=== PATIENT | male | born 1950 | race Caucasian/White ===

== ENCOUNTER 2019-05-26 17:37 | Emergency (ER) | payer MEDICARE, OTHER ==
[~2019-05-26] VITALS: Ht 170.1 cm; Wt 90.9 kg
--- NOTE | 2019-05-26 18:12 | ED General ---
General Chief Complaint: Dizziness/Syncope Stated Complaint: DIZZINESS Nursing Triage Note: Patient presents to the ED with c/o dizziness. States he was getting ready to go watch his grand[employer] program when he stood up and became very dizzy. Reports that the onset was 4 to 5 hours prior to arrival at the ED. He also states his blood pressure was elevated at this time and reports a reading of 140/90. Nursing Sepsis Screen: No Definite Risk Source of Information: Patient, Spouse Exam Limitations: No Limitations History of Present Illness Date Seen by Provider: May 26, 2019 Time Seen by Provider: 17:45 Initial Comments Patient presents to ER by private conveyance with chief complaint of dizziness starting a couple hours ago. He stood up from a seated position and started to feel the room spinning around him but there is no motion. He's had this happen a few times in the past. He has had a problem with ear effusions sinus pressure and sinusitis. He says it's been especially bad lately. He denies any fevers or chills. He has a history of high blood pressure and prostatism and is on tamsulosin, lisinopril and finasteride. He has never seen anybody for it. His family history includes his dad having a stroke at age 70. He does not have diabetes, hypercholesterolemia, history of coronary disease stroke or other neurologic symptoms. Having no weakness slurring speech confusion or other concerning features. He used to smoke cigars over 20 years ago. He does not use recreational drugs but he does drink occasional glass of red wine. Allergies and Home Medications Allergies Coded Allergies: meperidine (Verified Allergy, Unknown, 05/26/19) Home Medications Meclizine HCl 25 Mg Tablet, 25 MG PO Q6H PRN for DIZZINESS Prescribed by: JONATHON HARP on 05/26/191812 Prednisone 20 Mg Tab, 40 MG PO DAILY Prescribed by: JONATHON HARP on 05/26/191812 Patient Home Medication List Home Medication List Reviewed: Yes Review of Systems Review of Systems Constitutional: No chills, No fever, No malaise EENTM: see HPI, hearing loss, nose congestion; No ear discharge, No ear pain, No blurred vision, No double vision, No mouth swelling, No nose pain, No throat pain Respiratory: No cough, No short of breath Cardiovascular: No chest pain, No edema Gastrointestinal: No abdominal pain, No constipation, No diarrhea Genitourinary: No discharge, No dysuria Musculoskeletal: No back pain Skin: No pruritus, No rash Psychiatric/Neurological: Denies Headache, Denies Numbness Past Epyeyga-Cehxtc-Xqwryu Hx Patient Social History Alcohol Use: Occasionally Uses Recreational Drug Use: No Smoking Status: Former Smoker Type Used: Cigars 2nd Hand Smoke Exposure: No Recent Foreign Travel: No Contact w/Someone Who Travel: No Recent Infectious Disease Expo: No Recent Hopitalizations: No Physical Abuse: No Sexual Abuse: No Mistreated: No Fear: No Seasonal Allergies Seasonal Allergies: Yes Past Medical History Surgeries: Yes (Colonoscopy) Respiratory: No Cardiac: Yes Hypertension Neurological: No Genitourinary: Yes Benign Prostatic Hyperpl Gastrointestinal: No Musculoskeletal: No Endocrine: No HEENT: Yes (Chronic Sinusitis) Cancer: No Psychosocial: No Integumentary: No Blood Disorders: No Physical Exam Vital Signs Vital Signs - First Documented 05/26/19 17:44 Temp 35.8 Pulse 53 Resp 15 B/P (MAP) 140/70 (93) Pulse Ox 95 O2 Delivery Room Air Capillary Refill : Less Than 3 Seconds Height, Weight, BMI Height: '" Weight: lbs. oz. kg; 31.00 BMI Method: General Appearance: No Apparent Distress, WD/WN, Anxious Eyes: Bilateral Eye Normal Inspection, Bilateral Eye PERRL, Bilateral Eye EOMI HEENT: PERRL/EOMI, Pharynx Normal, Moist Mucous Membranes, Other (mild nasal congestion. Bilateral TMs with clear mucoid effusion and bulging but without erythema or injection) Neck: Full Range of Motion, Normal Inspection, Non Tender, Supple Respiratory: Lungs Clear, Normal Breath Sounds, No Accessory Muscle Use, No Respiratory Distress Cardiovascular: Regular Rate, Rhythm, No Edema, Normal Peripheral Pulses, Other (heart rate in the 40s which she states is his baseline) Extremity: Normal Capillary Refill, Normal Inspection Neurologic/Psychiatric: Alert, Oriented x3, No Motor/Sensory Deficits, leather cleaner II- XII Norm as Tested, Other (test of skew demonstrates horizontal but no vertical pupil movement. Negative for nystagmus. Normal head impulse testing. No pronator drift.) Skin: Normal Color, Warm/Dry Progress/Results/Core Measures Suspected Sepsis Recent Fever Within 48 Hours: No Infection Criteria Present: None New/Unexplained Altered Menta: No Sepsis Screen: No Definite Risk SIRS Temperature: Pulse: 53 Respiratory Rate: 15 Blood Pressure 140 /70 Mean: 93 Results/Orders My Orders Orders - JONATHON HARP Ekg Tracing (05/26/19 17:43) Vital Signs/I&O 05/26/19 17:44 Temp 35.8 Pulse 53 Resp 15 B/P (MAP) 140/70 (93) Pulse Ox 95 O2 Delivery Room Air Capillary Refill : Less Than 3 Seconds Blood Pressure Mean: 93 Progress Note : Time: 18:17 Progress Note NIH is 0. He has vertigo which was not reproducible on Melita-Hallpike testing does appear to be linked to his bilateral mucoid effusion and likely labyrinthitis. He did have a brief episode of vertigo after sitting him back up from his Melita- Hallpike maneuver. Plan to put him out on steroids with meclizine. Follow-up with primary care. Gave good return precautions for any neurologic symptoms. Departure Impression Primary Impression: Vertigo Additional Impression: Labyrinthitis of both ears Disposition: 01 HOME, SELF-CARE Condition: Stable Departure-Patient Inst. Decision time for Depature: 18:10 Referrals: CHRISTIANA ARCHIBALD MD (PCP/Family) Primary Care Physician Patient Instructions: Vertigo (a Type of Dizziness) (DC), Labyrinthitis Add. Discharge Instructions: If you begin to have any neurologic symptoms such as weakness, numbness, tingling, facial droop, slurred speech, confusion, inability to recognize faces or other worrisome symptoms then please return to the nearest ER immediately. 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 If you're not seeing improvement in the first 5-7 days then start the prednisone 2 tablets daily for 5 days. If this does not improve your symptoms follow-up with primary care. If you have persistent vertigo then you may try meclizine 1 tablet every 6 hours as needed. All discharge instructions reviewed with patient and/or family. Voiced understanding. Scripts Prednisone (Prednisone) 20 Mg Tab 40 MG PO DAILY for 5 Days, #10 TAB 0 Refills Prov: JONATHON HARP 05/26/19 Meclizine HCl (Meclizine HCl) 25 Mg Tablet 25 MG PO Q6H PRN for DIZZINESS, #20 TAB 0 Refills Prov: JONATHON HARP 05/26/19 JNOATHON HARP May 26, 2019 18:12
[2019-05-26] MEDS ORDERED: PRD20T PO (18:13)
[2019-05-26] MEDS ORDERED: MECL-106 PO (18:13)
[2019-05-26 18:23] VITALS: BP 140/70
== END 2019-05-26 18:22 | disposition home or self-care (01) ==
LOC: EDUNIT# 17:37 → ER FS 17:40
DX: H83.03 Labyrinthitis, bilateral (principal); I10 Essential (primary) hypertension; Z88.5 Allergy status to narcotic agent; Z87.891 Personal history of nicotine dependence
CPT/HCPCS: 99283

== ENCOUNTER 2019-12-07 22:13 | Emergency (ER) | payer MEDICARE, OTHER ==
[~2019-12-07 22:13] MED LIST: MECL-149 PO; PRD20T PO
--- OUTSIDE RECORDS SUMMARY | 2019-12-07 22:18 | XMS REPORT | Continuity of Care Document ---
Author Organization Unknown Address Unknown Phone Unavailable Allergies Active Description Code Type Severity Reaction Onset Reported/Identified Relationship to Patient Clinical Status Yes meperidine [id number] Drug Allerg y Unknown N/A 05/26/2019 Medications There is no data. Problems Date Dx Coded Attending Type Code Diagnosis Diagnosed By 05/26/2019 JONATHON HARP MD Ot H83. 03 LABYRINTHITIS, BILATERAL 05/26/2019 JONATHON HARP MD Ot I10 ESSENTIAL (PRIMARY) HYPERTENSION 05/26/2019 JONATHON HARP MD Ot R42 DIZZINESS AND GIDDINESS 05/26/2019 JONATHON HARP MD Ot Z87.891 PERSONAL HISTORY OF NICOTINE DEPENDENCE 05/26/2019 JONATHON HARP MD Ot Z88. 5 ALLERGY STATUS TO NARCOTIC AGENT STATUS 06/01/2019 JONATHON HARP MD Ot H83. 03 LABYRINTHITIS, BILATERAL 06/01/2019 JONATHON HARP MD Ot I10 ESSENTIAL (PRIMARY) HYPERTENSION 06/01/2019 JONATHON HARP MD Ot R42 DIZZINESS AND GIDDINESS 06/01/2019 JONATHON HARP MD Ot Z87.891 PERSONAL HISTORY OF NICOTINE DEPENDENCE 06/01/2019 JONATHON HARP MD Ot Z88. 5 ALLERGY STATUS TO NARCOTIC AGENT STATUS Procedures There is no data. Results There is no data. Encounters ACCT No. Visit Date/Time Discharge Status Pt. Type Provider Facility Loc./Unit Complaint [id number] 05/26/2019 17:40:00 019 18:22:00 DIS Emergency JONATHON HARP MD Via [facility] ER FS DIZZINESS
[2019-12-07] MEDS ORDERED: NS IV 1000 ML 1,000 ML ONE (22:19)
[2019-12-07] MEDS ORDERED: NS IV 1000 ML 1,000 ML IV STA (22:20)
--- NOTE | 2019-12-07 22:25 | ED Syncope ---
General Stated Complaint: SINKABLE EPISODE Source of Information: Patient, EMS, EMS Notes Reviewed, RN/MD, RN Notes Reviewed Exam Limitations: No Limitations History of Present Illness Date Seen by Provider: Dec 07, 2019 Time Seen by Provider: 10:15 Initial Comments This patient is a 69-year-old male that presents to the emergency department via EMS for syncopal episode. Patient has been doing a colon cleanse be prepared for a colonoscopy tomorrow. Patient has been using the bathroom a lot due to the cleansing agents. Patient states he is went to have a bowel movement and got up to go back to the bedroom and got real sweaty and then apparently passed out. Patient was only out for just a few seconds. hall monitor by EMS showed the pat ient a heart rate of 40. We'll discuss at length with this about the patient should he states he's had a heart rate in the 40s his entire life. Patient states every since a young child always had a heart rate in the 40s. Patient does not take any medications to help with low heart rate. He does however take lisinopril as needed for blood pressure. We'll do medical evaluation treatment is needed. Patient is alert and oriented 3 has no neurological deficits. Symptoms Prior to Episode: Diaphoresis, Lightheadedness Loss of Consciousness: Brief (Seconds) Current Symptoms: Back to Normal Allergies and Home Medications Allergies Coded Allergies: meperidine (Verified Allergy, Unknown, 05/26/19) Home Medications Meclizine HCl 25 Mg Tablet, 25 MG PO Q6H PRN for DIZZINESS Prescribed by: JONATHON HARP on 05/26/191812 Prednisone 20 Mg Tab, 40 MG PO DAILY Prescribed by: JONATHON HARP on 05/26/191812 Patient Home Medication List Home Medication List Reviewed: Yes Review of Systems Constitutional: No no symptoms reported; see HPI; No chills, No diaphoresis, No dizziness, No fever, No malaise, No weakness, No weight gain, No weight loss, No other Respiratory: No no symptoms reported, No see HPI, No cough, No dyspnea on exertion, No hemoptysis, No orthopnea, No phlegm, No short of breath, No stridor, No wheezing, No other Cardiovascular: No no symptoms reported; see HPI; No chest pain, No edema, No Hx of Intervention, No palpitations; syncope; No vascular heart diseas, No other Genitourinary: No no symptoms reported, No see HPI, No decreased output, No discharge, No dysuria, No frequency, No hematuria, No hesitancy, No incontinence, No nocturia, No pain, No other Musculoskeletal: No no symptoms reported, No see HPI, No back pain, No gout, No joint pain, No joint swelling, No muscle pain, No muscle stiffness, No muscle cramps, No muscle twitching, No muscle weakness, No neck pain, No other Psychiatric/Neurological: No Symptoms Reported, See HPI; Denies Anxiety, Denies Depressed, Denies Emotional Problems, Denies Headache, Denies Numbness, Denies Paresthesia, Denies Pre-Existing Deficit, Denies Seizure, Denies Tingling, Denies Tremors, Denies Weakness, Denies Other All Other Systems Reviewed Negative Unless Noted: Yes Past Corgfpr-Snjvbx-Bmxrjn Hx Patient Social History Type Used: Cigars 2nd Hand Smoke Exposure: No Recent Hopitalizations: No Seasonal Allergies Seasonal Allergies: Yes Past Medical History Surgeries: Yes (Colonoscopy) Respiratory: No Cardiac: Yes Hypertension Neurological: No Genitourinary: Yes Benign Prostatic Hyperpl Gastrointestinal: No Musculoskeletal: No Endocrine: No HEENT: Yes (Chronic Sinusitis) Cancer: No Psychosocial: No Integumentary: No Blood Disorders: No Physical Exam Vital Signs Vital Signs - First Documented 12/07/19 22:22 Temp 35.3 Pulse 41 Resp 13 B/P (MAP) 93/56 (68) Pulse Ox 95 O2 Delivery Nasal Cannula O2 Flow Rate 2.00 Capillary Refill : Height, Weight, BMI Height: '" Weight: lbs. oz. kg; 31.00 BMI Method: General Appearance: No Apparent Distress, WD/WN HEENT: PERRL/EOMI, TMs Normal, Normal ENT Inspection, Pharynx Normal Neck: Full Range of Motion, Normal Inspection, Non Tender, Supple Cardiovascular: No Edema, No Gallop, No JVD, No Murmur, Normal Peripheral Pulses, Bradycardia Respiratory: Chest Non Tender, Lungs Clear, Normal Breath Sounds, No Accessory Muscle Use, No Respiratory Distress Gastrointestinal: Normal Bowel Sounds, No Organomegaly, No Pulsatile Mass, Non Tender, Soft Back: Normal Inspection, No CVA Tenderness, No Vertebral Tenderness Neurologic/Psychiatric: Alert, Oriented x3, No Motor/Sensory Deficits, Normal Mood/Affect, 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 Norm as Tested Cranial Nerves: Normal Hearing, Normal Speech, PERRL Coordination/Gait: Normal Finger to Nose, Normal Gait, Negative Romberg's Sign Motor/Sensory: No Motor Deficit, No Sensory Deficit, No Pronator Drift Skin: Normal Color, Warm/Dry, Cool Lymphatic: No Adenopathy Progress/Results/Core Measures Results/Orders Lab Results Laboratory Tests Test 12/07/19 22:23 Range/Units White Blood Count 10.6 4.3-11.0 10^3/uL Red Blood Count 5.06 4.35-5.85 10^6/uL Hemoglobin 15.6 13.3-17.7 G/DL Hematocrit 46 40-54 % Mean Corpuscular Volume 91 80-99 FL Mean Corpuscular Hemoglobin 31 25-34 PG Mean Corpuscular Hemoglobin Concent 34 32-36 G/DL Red Cell Distribution Width 12.0 10.0-14.5 % Platelet Count 219 130-400 10^3/uL Mean Platelet Volume 10.2 7.4-10.4 FL Neutrophils (%) (Auto) 60 42-75 % Lymphocytes (%) (Auto) 29 12-44 % Monocytes (%) (Auto) 7 0-12 % Eosinophils (%) (Auto) 2 0-10 % Basophils (%) (Auto) 1 0-10 % Neutrophils # (Auto) 6.4 1.8-7.8 X 10^3 Lymphocytes # (Auto) 3.1 1.0-4.0 X 10^3 Monocytes # (Auto) 0.8 0.0-1.0 X 10^3 Eosinophils # (Auto) 0.2 0.0-0.3 10^3/uL Basophils # (Auto) 0.1 0.0-0.1 10^3/uL Sodium Level 139 135-145 MMOL/L Potassium Level 4.1 3.6-5.0 MMOL/L Chloride Level 101 98-107 MMOL/L Carbon Dioxide Level 21 21-32 MMOL/L Anion Gap 17 H 5-14 MMOL/L Blood Urea Nitrogen 17 7-18 MG/DL Creatinine 1.30 0.60-1.30 MG/DL Estimat Glomerular Filtration Rate 55 BUN/Creatinine Ratio 13 Glucose Level 110 H 70-105 MG/DL Calcium Level 9.3 8.5-10.1 MG/DL Corrected Calcium 8.5-10.1 MG/DL Total Bilirubin 0.5 0.1-1.0 MG/DL Aspartate Amino Transf (AST/SGOT) 24 5-34 U/L Alanine Aminotransferase (ALT/SGPT) 25 0-55 U/L Alkaline Phosphatase 43 40-136 U/L Troponin I < 0.30 <0.30 NG/ML Pro-B-Type Natriuretic Peptide 74.6 <75.0 PG/ML Total Protein 7.7 6.4-8.2 GM/DL Albumin 4.7 H 3.2-4.5 GM/DL My Orders Orders - BRENDON DEMARCO MD Ed Iv/Invasive Line Start (12/07/19 22:15) Cbc With Automated Diff (12/07/19 22:15) Comprehensive Metabolic Panel (12/07/19 22:15) Drug Screen Stat (Urine) (12/07/19 22:15) Ekg Tracing (12/07/19 22:15) Chest 1 View Ap/Pa Only (12/07/19 22:15) Troponin I Fs (12/07/19 22:15) Probnp Fs (12/07/19 22:15) Urinalysis (12/07/19 22:15) Orthostatic Vital Signs (Adult (12/07/19 22:19) Ns Iv 1000 Ml (Sodium Chloride 0.9%) (12/07/19 22:20) Ondansetron Injection (Zofran Injectio (12/07/19 22:30) Ns Iv 1000 Ml (Sodium Chloride 0.9%) (12/07/19 22:19) Medications Given in ED Current Medications Medications Dose Ordered Sig/Lupe Route Start Time Stop Time Status Last Admin Dose Admin Ondansetron HCl 4 mg ONCE ONCE IVP 12/07/19 22:30 12/07/19 22:31 DC 12/07/19 22:25 4 MG Sodium Chloride 1,000 ml @ [facility] ONCE .ROUTE 12/07/19 22:19 12/07/19 22:21 DC 12/07/19 22:23 1,000 MLS/HR Vital Signs/I&O 12/07/19 12/07/19 22:22 23:19 Temp 35.3 Pulse 41 44 Resp 13 B/P (MAP) 93/56 (68) 100/52 (68) Pulse Ox 95 O2 Delivery Nasal Cannula O2 Flow Rate 2.00 Progress Progress Note : Time: 23:22 Progress Note I discussed at length with patient about the patient's low heart rate. Patient states has been low like this is entire life. I did discuss options about admitting the patient to the hospital for further evaluation by cardiology and the patient may need pacemaker. Patient states he understands patient states that one year ago they did discuss at that would be monitoring his heart rate in my need a future pacemaker but has never had any issues. Patient believes that this 48 hour prep that he's been going through to get ready for a colonoscopy may have just slightly dehydrated him and causing him to have a syncopal episode. Patient states he is feeling much better after a fluid bolus. I did discuss my concerns and offered the patient admission to the hospital. For further evaluation. The patient has declined admission. He states understanding of the risk and concerns. Believes it is just all related to dehydration. Advised the patient to my concerns about his cardiac heart rate. Because of orthostatic syncope. Patient states understanding but again states he wishes to be discharged home. Patient does have an appointment with Dr. Alanis in the morning he will discuss further with the about any further concerns treatments. Patient states that he will return to the emerge department if he gets to feeling bad again. Patient again states he understands all the risks. Patient be discharged home per his request. Initial ECG Impression Date: Dec 07, 2019 Initial ECG Impression Time: 22:18 Initial ECG Rate: 41 Initial ECG Rhythm: S.Randy Initial ECG Impression: Sinus Bradycardia Comment Sinus bradycardia with occasional PAC. Nonspecific EKG changes heart rate 41. Departure Impression Primary Impression: Orthostatic syncope Additional Impression: Chronic sinus bradycardia Disposition: 01 HOME, SELF-CARE Condition: Stable Departure-Patient Inst. Decision time for Depature: 23:25 Referrals: CHRISTIANA ALANIS MD (PCP/Family) Primary Care Physician Patient Instructions: Bradycardia (DC), Orthostatic Hypotension (DC) Add. Discharge Instructions: Encourage by mouth fluids. Move slowly when changing from lying to sitting or to a standing position. Understanding the risk and concerns of possible orthostatic syncope. Follow-up with your primary care physician as instructed. Understand that he your choosing to be discharged home your recommended to follow-up with cardiology as instructed. Please understand that he may need a pacemaker. BRENDON DEMARCO MD Dec 07, 2019 22:24
[2019-12-07] MEDS ORDERED: ONDANSETRON 4 MG/2 ML (SDV) Z0FRAN IVP ONE (22:30)
[2019-12-07 22:33] LABS: BASOPHILS # (AUTO) 0.1 10^3/uL (0.0-0.1); BASOPHILS % (AUTO) 1 % (0-10); EOSINOPHILS # (AUTO) 0.2 10^3/uL (0.0-0.3); EOSINOPHILS % (AUTO) 2 % (0-10); HEMATOCRIT 46 % (40-54); HEMOGLOBIN 15.6 G/DL (13.3-17.7); LYMPHOCYTES # (AUTO) 3.1 X 10^3 (1.0-4.0); LYMPHOCYTES % (AUTO) 29 % (12-44); MEAN CORPUSCULAR HEMOGLOBIN 31 PG (25-34); MEAN CORPUSCULAR HGB CONC 34 G/DL (32-36); MEAN CORPUSCULAR VOLUME 91 FL (80-99); MEAN PLATELET VOLUME 10.2 FL (7.4-10.4); MONOCYTES # (AUTO) 0.8 X 10^3 (0.0-1.0); MONOCYTES % (AUTO) 7 % (0-12); NEUTROPHILS # (AUTO) 6.4 X 10^3 (1.8-7.8); NEUTROPHILS % (AUTO) 60 % (42-75); PLATELET COUNT 219 10^3/uL (130-400); WHITE BLOOD COUNT 10.6 10^3/uL (4.3-11.0)
[2019-12-07 22:58] LABS: BUN/CREATININE RATIO 13; CARBON DIOXIDE 21 MMOL/L (21-32); CHLORIDE 101 MMOL/L (98-107); GFR ESTIMATED 55; GLUCOSE 110 MG/DL (70-105); POTASSIUM 4.1 MMOL/L (3.6-5.0); SODIUM 139 MMOL/L (135-145)
[2019-12-07 22:59] LABS: ALANINE AMINOTRANSFERASE 25 U/L (0-55); ALBUMIN 4.7 GM/DL (3.2-4.5); ALKALINE PHOSPHATASE 43 U/L (40-136); BILIRUBIN,TOTAL 0.5 MG/DL (0.1-1.0); CALCIUM 9.3 MG/DL (8.5-10.1); TOTAL PROTEIN 7.7 GM/DL (6.4-8.2)
[2019-12-07 23:19] VITALS: BP 100/52
[2019-12-07 23:23] VITALS: BP_SYST 100; BP_SYST 101; BP_SYST 105; BP_DIAS 48; BP_DIAS 52; BP_DIAS 58
[2019-12-07 23:30] VITALS: BP 104/55
--- NOTE | 2019-12-08 08:50 | Diagnostic Imaging Report ---
INDICATION: Syncopal FINDINGS: The lungs clear. The heart size is normal. No failure, effusion or pneumothorax. IMPRESSION: Acute appearing abnormality. Dictated by: Dictated on workstation # [id number]
== END 2019-12-07 23:30 | disposition home or self-care (01) ==
LOC: EDUNIT# 22:13 → ER FS 22:14
DX: R55 Syncope and collapse (principal); R00.1 Bradycardia, unspecified; Z88.8 Allergy status to other drugs, medicaments and biological substances; Z79.52 Long term (current) use of systemic steroids
CPT/HCPCS: 36415; 71045; 80053; 83880; 84484; 85025; 93005; 96361; 96374

== ENCOUNTER 2021-02-06 07:33 | Emergency (ER) | payer MEDICARE, OTHER ==
[~2021-02-06] VITALS: Ht 167 cm; Wt 90.0 kg
--- NOTE | 2021-02-06 08:02 | ED Lower Extremity ---
General Chief Complaint: Lower Extremity Stated Complaint: LT LEG PAIN Nursing Triage Note: Pt here with left lower extremity pain; states he [place] walking in the park 3 wks ago. Denies recent trauma or falls. Source: patient History of Present Illness Date Seen by Provider: Feb 06, 2021 Time Seen by Provider: 07:35 Initial Comments 70-year-old male presenting with left lateral ankle and lower leg pain since yesterday morning. He denies any specific trauma. He felt like the pain was getting better as he went about his day yesterday. This morning when he woke up he was having severe pain and tried taking 2 Aleve. However as he was trying to walk for exercise he was having continued pain. He felt that the pain was getting better but he decided to come be seen. He is concerned that maybe there was a fracture injury to the bone. He has no bruising or swelling. There is pain with plantar dorsiflexion. He has no calf pain. Onset: yesterday Severity: moderate Pain/Injury Location: left leg, left ankle Method of Injury: unknown Modifying Factors: Worse With Movement Allergies and Home Medications Allergies Coded Allergies: meperidine (Verified Allergy, Unknown, 05/26/19) Home Medications Meclizine HCl 25 Mg Tablet, 25 MG PO Q6H PRN for DIZZINESS Prescribed by: JONATHON HARP on 05/26/191812 Prednisone 20 Mg Tab, 40 MG PO DAILY Prescribed by: JONATHON HARP on 05/26/191812 Patient Home Medication List Home Medication List Reviewed: Yes Review of Systems Constitutional: no symptoms reported Respiratory: no symptoms reported Cardiovascular: no symptoms reported Musculoskeletal: see HPI Skin: No change in color, No rash Psychiatric/Neurological: Denies Numbness, Denies Paresthesia Past Mxpgnwg-Uhhwio-Zsugpv Hx Patient Social History Tobacco Use?: No Substance use?: No Pt feels they are or have been: No Immunizations Up To Date Second COVID19 Vaccination Gurwinder: August Seasonal Allergies Seasonal Allergies: Yes Past Medical History Surgeries: Yes (Colonoscopy) Respiratory: No Cardiac: Yes Hypertension Neurological: No Genitourinary: Yes Benign Prostatic Hyperpl Gastrointestinal: No Musculoskeletal: No Endocrine: No HEENT: Yes (Chronic Sinusitis) Cancer: No Psychosocial: No Integumentary: No Blood Disorders: No Physical Exam Vital Signs Vital Signs - First Documented 02/06/21 07:43 Temp 36.3 Pulse 89 Resp 16 B/P (MAP) 110/70 (83) Pulse Ox 97 O2 Delivery Room Air Capillary Refill : Less Than 3 Seconds Height, Weight, BMI Height: '" Weight: lbs. oz. kg; 32.00 BMI Method: General Appearance: WD/WN, no apparent distress Cardiovascular: normal peripheral pulses Legs: left leg pain, left leg soft tissue tenderness (tender to palpation of lateral distal leg towards his ankle. no swelling/erythema/warmth) Ankles: left ankle pain (increased pain with plantar and dorsiflexion. lateral ankle and distal leg pain. no erythema/warmth/swelling/crepitus), left ankle soft tissue tenderness Neurologic/Tendon: normal sensation, normal motor functions, normal tendon functions Neurologic/Psychiatric: alert, oriented x 3 Skin: normal color, warm/dry Progress/Results/Core Measures Results/Orders My Orders Orders - MICHAEL WALSH MD Ankle 3 View Left (02/06/21 07:47) Tibia Fibula 2 View Left (02/06/21 07:47) Vital Signs/I&O 02/06/21 07:43 Temp 36.3 Pulse 89 Resp 16 B/P (MAP) 110/70 (83) Pulse Ox 97 O2 Delivery Room Air Blood Pressure Mean: 83 Progress Progress Note #1: Progress Note since he already took aleve at home for pain will obtain xrays of tibia/fibula and ankle on left side to see if there is any bony abnormality to account for his symptoms. Progress Note #2: Progress Note no acute fracture or bony injury on imaging of ankle or tib/fib. Will treat symptomatically and have him check back with clinic or Ortho if having continued concerns/problems. Diagnostic Imaging Diagonstic Imaging: Xray Plain Films/CT/US/NM/MRI: ankle Comments NAME: CHRISTIANA MEDEL [facility] REC#: [id number] PT STATUS: REG ER : 1950 PHYSICIAN: MICHAEL WALSH MD ADMIT DATE: 02/06/21/ER FS Draft Date of Exam:02/06/21 ANKLE 3 VIEW LEFT INDICATION: lateral pain x24 hours, no injury, worse with walking TECHNIQUE: Three views of the left ankle CORRELATION STUDY: None FINDINGS: The bony alignment is anatomic. The talar dome is intact. The ankle mortise is maintained. There is no acute fracture or dislocation. Soft tissues are unremarkable. IMPRESSION: Negative for acute bony abnormality of the ankle. Dictated on workstation # [id number] Dict: 02/06/21819 Trans: 02/06/21820 DO [id number] Interpreted by: SUKHJINDER BURTON DO Electronically signed by: Reviewed: Reviewed by Me Diagonstic Imaging: Xray Plain Films/CT/US/NM/MRI: leg Comments NAME: CHRISTIANA MEDEL [facility] REC#: [id number] PT STATUS: REG ER : 1950 PHYSICIAN: MICHAEL WALSH MD ADMIT DATE: 02/06/21/ER FS Draft Date of Exam:02/06/21 TIBIA FIBULA 2 VIEW LEFT INDICATION: Left leg pain AP and lateral views of the left tibia and fibula are obtained. No fracture or acute bony abnormality is seen. IMPRESSION: Negative left tibia and fibula. Dictated on workstation # [id number] Dict: 02/06/21818 Trans: 02/06/21820 TIFFANY [id number] Interpreted by: ENRIQUETA SALGUERO MD Electronically signed by: Reviewed: Reviewed by Me Departure Impression Primary Impression: Pain in lateral left lower extremity Additional Impression: Pain in lateral portion of left ankle Disposition: 01 HOME, SELF-CARE Condition: Stable Departure-Patient Inst. Decision time for Depature: 08:35 Referrals: CHRISTIANA ARCHIBALD MD (PCP/Family) Primary Care Physician Patient Instructions: Muscle and Bone Pain (DC), Ankle Sprain ED Add. Discharge Instructions: No fracture or bony injury seen on xrays. Try ice 20-30 minutes every few hours and may alternate with heat for inflammation and pain Check back with clinic or you could check with Orthopedics if not improving, or if worsening instead of getting better. Dr. Jose with Orthopedics works with Nurse Practitioner Roshan Ballard out of the [facility] clinic here in [place] and can be reached by calling [phone] to set up an appointment. All discharge instructions reviewed with patient and/or family. Voiced unders tanding. MICHAEL WALSH MD Feb 06, 2021 08:02
--- NOTE | 2021-02-06 08:21 | Diagnostic Imaging Report ---
INDICATION: lateral pain x24 hours, no injury, worse with walking TECHNIQUE: Three views of the left ankle CORRELATION STUDY: None FINDINGS: The bony alignment is anatomic. The talar dome is intact. The ankle mortise is maintained. There is no acute fracture or dislocation. Soft tissues are unremarkable. IMPRESSION: Negative for acute bony abnormality of the ankle. Dictated by: Dictated on workstation # [id number]
--- NOTE | 2021-02-06 08:21 | Diagnostic Imaging Report ---
INDICATION: Left leg pain AP and lateral views of the left tibia and fibula are obtained. No fracture or acute bony abnormality is seen. IMPRESSION: Negative left tibia and fibula. Dictated by: Dictated on workstation # [id number]
[2021-02-06 08:43] VITALS: BP 110/70
== END 2021-02-06 08:45 | disposition home or self-care (01) ==
LOC: EDUNIT# 07:33 → ER FS 07:35
DX: M25.572 Pain in left ankle and joints of left foot (principal); I10 Essential (primary) hypertension; Z79.52 Long term (current) use of systemic steroids
CPT/HCPCS: 73590; 73610

== ENCOUNTER 2021-12-04 18:07 | Emergency (ER) | payer MEDICARE, OTHER ==
[~2021-12-04] VITALS: Ht 170.2 cm; Wt 92.9 kg
--- NOTE | 2021-12-04 18:24 | ED General ---
General Chief Complaint: COVID19 Suspect/Confirmed Stated Complaint: SHAKING History of Present Illness Date Seen by Provider: Dec 04, 2021 Time Seen by Provider: 18:20 Initial Comments 71-year-old male presents because he reports he "just feels funny". Patient reports that he felt little shaky. That this started this afternoon. Patient's is positive for COVID. He has a very occasional cough. No reports of fever or chills. Patient does not shortness of breath. He is not sure if maybe he is a little bit dehydrated. He reports that happened after he was at a meeting then came home and ate a sandwich and some food but really has not felt much better. He denies any nausea vomiting or diarrhea. Patient reports that he has both his vaccinations and the booster. Allergies and Home Medications Allergies Coded Allergies: meperidine (Verified Allergy, Unknown, 05/26/19) Patient Home Medication List Home Medication List Reviewed: Yes Meclizine HCl (Meclizine HCl) 25 Mg Tablet, 25 MG PO Q6H PRN for DIZZINESS Prescribed by: JONATHON HARP on 05/26/191812 Prednisone (Prednisone) 20 Mg Tab, 40 MG PO DAILY Prescribed by: JONATHON HARP on 05/26/191812 Review of Systems Review of Systems Constitutional: see HPI, malaise EENTM: no symptoms reported Respiratory: cough; No short of breath Cardiovascular: No chest pain, No palpitations Gastrointestinal: No abdominal pain, No nausea, No vomiting Genitourinary: no symptoms reported Musculoskeletal: see HPI Skin: no symptoms reported Psychiatric/Neurological: See HPI Hematologic/Lymphatic: No Symptoms Reported Past Ogdkljj-Vszlfe-Fghluc Hx Patient Social History Tobacco Use?: No Smoking Status: Former Smoker Smokeless Tobacco Frequency: Never a User Use of E-Cig and/or Vaping dev: No Use of E-Cig and/or Vaping Dylon: Never a User Substance use?: No Alcohol Use?: Yes Alcohol type: Hard Liquor Alcohol Frequency: Once in a while Pt feels they are or have been: No Immunizations Up To Date Second COVID19 Vaccination Gurwinder: August COVID19 Vaccine Pediatric Allergist: MODERNA Seasonal Allergies Seasonal Allergies: Yes Past Medical History Surgeries: Yes (Colonoscopy) Respiratory: No Cardiac: Yes Hypertension Neurological: No Genitourinary: Yes Benign Prostatic Hyperpl Gastrointestinal: No Musculoskeletal: No Endocrine: No HEENT: Yes (Chronic Sinusitis) Cancer: No Psychosocial: No Integumentary: No Blood Disorders: No Physical Exam Vital Signs Vital Signs - First Documented 12/04/21 19:25 Pulse Ox 97 Capillary Refill : Height, Weight, BMI Height: '" Weight: lbs. oz. kg; 32.00 BMI Method: General Appearance: No Apparent Distress, WD/WN HEENT: PERRL/EOMI, Moist Mucous Membranes Respiratory: Lungs Clear, Normal Breath Sounds Cardiovascular: Regular Rate, Rhythm, No Edema Gastrointestinal: Non Tender, Soft Extremity: Normal Capillary Refill, Normal Range of Motion Neurologic/Psychiatric: Alert, Oriented x3, No Motor/Sensory Deficits, Normal Mood/Affect Skin: Normal Color, Warm/Dry Progress/Results/Core Measures Suspected Sepsis SIRS Temperature: Pulse: Respiratory Rate: Laboratory Tests 12/04/21 18:20: White Blood Count 8.5 Blood Pressure / Mean: Laboratory Tests 12/04/21 18:20: Creatinine 1.26, Platelet Count 160, Total Bilirubin 0.3 Results/Orders Lab Results Laboratory Tests Test 12/04/21 18:20 Range/Units White Blood Count 8.5 4.3-11.0 10^3/uL Red Blood Count 4.45 4.30-5.52 10^6/uL Hemoglobin 13.8 13.3-17.7 g/dL Hematocrit 40 40-54 % Mean Corpuscular Volume 90 80-99 fL Mean Corpuscular Hemoglobin 31 25-34 pg Mean Corpuscular Hemoglobin Concent 34 32-36 g/dL Red Cell Distribution Width 12.0 10.0-14.5 % Platelet Count 160 130-400 10^3/uL Mean Platelet Volume 9.7 9.0-12.2 fL Immature Granulocyte % (Auto) 0 % Neutrophils (%) (Auto) 86 H 42-75 % Lymphocytes (%) (Auto) 6 L 12-44 % Monocytes (%) (Auto) 6 0-12 % Eosinophils (%) (Auto) 2 0-10 % Basophils (%) (Auto) 1 0-10 % Neutrophils # (Auto) 7.3 1.8-7.8 10^3/uL Lymphocytes # (Auto) 0.5 L 1.0-4.0 10^3/uL Monocytes # (Auto) 0.5 0.0-1.0 10^3/uL Eosinophils # (Auto) 0.1 0.0-0.3 10^3/uL Basophils # (Auto) 0.1 0.0-0.1 10^3/uL Immature Granulocyte # (Auto) 0.0 0.0-0.1 10^3/uL Neutrophils % (Manual) 81 % Lymphocytes % (Manual) 10 % Monocytes % (Manual) 3 % Eosinophils % (Manual) 2 % Basophils % (Manual) 0 % Band Neutrophils 4 % Sodium Level 136 135-145 MMOL/L Potassium Level 4.3 3.6-5.0 MMOL/L Chloride Level 100 98-107 MMOL/L Carbon Dioxide Level 23 21-32 MMOL/L Anion Gap 13 5-14 MMOL/L Blood Urea Nitrogen 26 H 7-18 MG/DL Creatinine 1.26 0.60-1.30 MG/DL Estimat Glomerular Filtration Rate 61 BUN/Creatinine Ratio 21 Glucose Level 124 H 70-105 MG/DL Calcium Level 8.9 8.5-10.1 MG/DL Corrected Calcium 8.5 8.5-10.1 MG/DL Magnesium Level 1.7 1.6-2.4 MG/DL Total Bilirubin 0.3 0.1-1.0 MG/DL Aspartate Amino Transf (AST/SGOT) 19 5-34 U/L Alanine Aminotransferase (ALT/SGPT) 21 0-55 U/L Alkaline Phosphatase 60 40-136 U/L Troponin I < 0.30 <0.30 NG/ML C-Reactive Protein 1.16 H <0.50 MG/DL Total Protein 7.3 6.4-8.2 GM/DL Albumin 4.5 3.2-4.5 GM/DL Influenza Type A (RT-PCR) Not Detected Not Detecte Influenza Type B (RT-PCR) Not Detected Not Detecte SARS-CoV-2 RNA (RT-PCR) Detected H Not Detecte My Orders Orders - HOWARD,PHILIPP L DO Cbc With Automated Diff (12/04/21 18:24) Comprehensive Metabolic Panel (12/04/21 18:24) Magnesium (12/04/21 18:24) Ua Culture If Indicated (12/04/21 18:24) Crp Fs (12/04/21 18:24) Troponin I Fs (12/04/21 18:24) Influenza A And B By Pcr (12/04/21 18:24) Covid 19 Inhouse Test (12/04/21 18:24) Chest 1 View Ap/Pa Only (12/04/21 18:24) Ekg Tracing (12/04/21 18:24) Monitor-Rhythm Ecg Trace Only (12/04/21 18:24) Manual Differential (12/04/21 18:20) Lactated Ringers (Lr 1000 Ml Iv Solution (12/04/21 18:33) Vital Signs/I&O 12/04/21 12/04/21 12/04/21 18:15 18:15 19:25 Temp 37.6 Pulse 106 78 Resp 19 15 B/P (MAP) 156/79 (104) 113/58 Pulse Ox 97 O2 Delivery Room Air Room Air Room Air Capillary Refill : Progress Note : Progress Note Patient tested positive for COVID. We did discuss qrgu-vbh-fxyjgge supportive measures. he will monitor his oxygen. Drink plenty of fluids. Return to the ER as needed. We did discuss Paxlovid, he declined a prescription at this time. He will discuss with his and call Dr. Alanis tomorrow if he feels like he would like to try it. Patient was stable and discharged home. ECG Initial ECG Impression Date: Dec 04, 2021 Initial ECG Impression Time: 18:43 Initial ECG Rate: 1843 Initial ECG Rhythm: Normal Sinus Initial ECG Intervals: AR (110) Initial ECG Impression: Nonspecific Changes Diagnostic Imaging Diagonstic Imaging: Xray Plain Films/CT/US/NM/MRI: chest Comments Date of Exam:12/04/21 CHEST 1 VIEW AP/PA ONLY INDICATION: Cough. Time of Exam: 6:36 PM Correlation is made with prior chest from 02/10/2020. FINDINGS: The heart size is normal. The pulmonary vascularity is unremarkable. The lungs are clear. No infiltrate, effusion or pneumothorax is detected. IMPRESSION: No acute cardiopulmonary process is detected. Reviewed: Reviewed by Me, Reviewed/Discussed Departure Impression Primary Impression: COVID-19 Disposition: 01 HOME, SELF-CARE Condition: Stable Departure-Patient Inst. Referrals: CHRISTIANA ALANIS MD (PCP/Family) Primary Care Physician Patient Instructions: COVID-19 (DC), COVID-19 Home Care/Discharge Add. Discharge Instructions: Drink plenty of fluids Tylenol or ibuprofen as needed for fever Please call Dr. Alanis for any other recommendation All discharge instructions reviewed with patient and/or family. Voiced understanding. PHILIPP HOWARD DO Dec 04, 2021 18:24
[2021-12-04 18:31] LABS: BASOPHILS # (AUTO) 0.1 10^3/uL (0.0-0.1); BASOPHILS % (AUTO) 1 % (0-10); EOSINOPHILS # (AUTO) 0.1 10^3/uL (0.0-0.3); EOSINOPHILS % (AUTO) 2 % (0-10); HEMATOCRIT 40 % (40-54); HEMOGLOBIN 13.8 g/dL (13.3-17.7); LYMPHOCYTES # (AUTO) 0.5 10^3/uL (1.0-4.0); LYMPHOCYTES % (AUTO) 6 % (12-44); MEAN CORPUSCULAR HEMOGLOBIN 31 pg (25-34); MEAN CORPUSCULAR HGB CONC 34 g/dL (32-36); MEAN CORPUSCULAR VOLUME 90 fL (80-99); MEAN PLATELET VOLUME 9.7 fL (9.0-12.2); MONOCYTES # (AUTO) 0.5 10^3/uL (0.0-1.0); MONOCYTES % (AUTO) 6 % (0-12); NEUTROPHILS # (AUTO) 7.3 10^3/uL (1.8-7.8); NEUTROPHILS % (AUTO) 86 % (42-75); PLATELET COUNT 160 10^3/uL (130-400); WHITE BLOOD COUNT 8.5 10^3/uL (4.3-11.0)
[2021-12-04] MEDS ORDERED: LACTATED RINGERS 1,000 ML IV STA (18:33)
--- NOTE | 2021-12-04 18:45 | Diagnostic Imaging Report ---
INDICATION: Cough. Time of Exam: 6:36 PM Correlation is made with prior chest from 02/10/2020. FINDINGS: The heart size is normal. The pulmonary vascularity is unremarkable. The lungs are clear. No infiltrate, effusion or pneumothorax is detected. IMPRESSION: No acute cardiopulmonary process is detected. Dictated by: Dictated on workstation # [id number]
[2021-12-04 18:55] LABS: BUN/CREATININE RATIO 21; CALCIUM 8.9 MG/DL (8.5-10.1); CARBON DIOXIDE 23 MMOL/L (21-32); CHLORIDE 100 MMOL/L (98-107); CREATININE SERUM 1.26 MG/DL (0.60-1.30); GFR ESTIMATED 61; GLUCOSE 124 MG/DL (70-105); POTASSIUM 4.3 MMOL/L (3.6-5.0); SODIUM 136 MMOL/L (135-145)
[2021-12-04 18:56] LABS: ALANINE AMINOTRANSFERASE 21 U/L (0-55); ALBUMIN 4.5 GM/DL (3.2-4.5); ALKALINE PHOSPHATASE 60 U/L (40-136); BILIRUBIN,TOTAL 0.3 MG/DL (0.1-1.0); MAGNESIUM 1.7 MG/DL (1.6-2.4); TOTAL PROTEIN 7.3 GM/DL (6.4-8.2)
[2021-12-04 18:57] LABS: BAND NEUTROPHILS 4 %; BASOPHILS % (MANUAL) 0 %; EOSINOPHILS % (MANUAL) 2 %; LYMPHOCYTES % (MANUAL) 10 %; MONOCYTES % (MANUAL) 3 %; NEUTROPHILS % (MANUAL) 81 %
[2021-12-04 19:25] VITALS: BP 113/58
== END 2021-12-04 19:25 | disposition home or self-care (01) ==
LOC: EDUNIT# 18:07 → ER FS 18:08
DX: U07.1 COVID-19 (principal); Z87.891 Personal history of nicotine dependence
CPT/HCPCS: 36415; 71045; 80053; 83735; 84484; 85007; 85027; 86141; 87636; 93005; 93041

== ENCOUNTER 2022-07-14 13:19 | Emergency (ER) | payer MEDICARE, OTHER ==
[2022-07-14 13:44] LABS: BASOPHILS # (AUTO) 0.1 10^3/uL (0.0-0.1); BASOPHILS % (AUTO) 1 % (0-10); EOSINOPHILS # (AUTO) 0.2 10^3/uL (0.0-0.3); EOSINOPHILS % (AUTO) 3 % (0-10); HEMATOCRIT 44 % (40-54); HEMOGLOBIN 15.8 g/dL (13.3-17.7); LYMPHOCYTES % (AUTO) 26 % (12-44); MEAN CORPUSCULAR HEMOGLOBIN 32 pg (25-34); MEAN CORPUSCULAR HGB CONC 36 g/dL (32-36); MEAN CORPUSCULAR VOLUME 89 fL (80-99); MEAN PLATELET VOLUME 9.9 fL (9.0-12.2); MONOCYTES # (AUTO) 0.6 10^3/uL (0.0-1.0); MONOCYTES % (AUTO) 7 % (0-12); NEUTROPHILS # (AUTO) 4.8 10^3/uL (1.8-7.8); NEUTROPHILS % (AUTO) 62 % (42-75); PLATELET COUNT 228 10^3/uL (130-400); WHITE BLOOD COUNT 7.8 10^3/uL (4.3-11.0)
[2022-07-14] MEDS ORDERED: ASPIRIN 81 MG CHEW (CHILDREN'S ASA) PO ONE (13:45)
--- NOTE | 2022-07-14 13:48 | ED General ---
General Chief Complaint: General Problems/Pain Stated Complaint: LT ARM PAIN; NEAR SYNCOPE Nursing Triage Note: Patient reports he has not felt well for 2 days. He reports pain in his left shoulder that does not radiate. Source of Information: Patient Exam Limitations: No Limitations History of Present Illness Date Seen by Provider: Jul 14, 2022 Time Seen by Provider: 13:20 Initial Comments 72-year-old male with past medical history most notable for hypertension coming in due to feeling "just off". States he felt something wrong so took his blood pressure and it was 150s over 80s and his heart rate was around 100. He states his heart rate has been in the 40s to 50s for the majority of his life so this was unusual for him. I did come back normally afterwards. He was just sitting down when this was occurring. He is also had some left arm shoulder aching is been going on for weeks with nothing really seems to make better or worse. It is constant. Not taking any medicines for it. Denies any trauma to it. Denies any fever, chills, shortness of breath, chest pain, focal weakness or numbness, headache, vision changes, nausea, vomiting, diarrhea, or any other concerns. He states he has been eating and drinking normally. Otherwise denying any other acute complaints. Allergies and Home Medications Allergies Coded Allergies: meperidine (Verified Allergy, Unknown, 05/26/19) Patient Home Medication List Home Medication List Reviewed: Yes Meclizine HCl (Meclizine HCl) 25 Mg Tablet, 25 MG PO Q6H PRN for DIZZINESS Prescribed by: JONATHON HARP on 05/26/191812 Prednisone (Prednisone) 20 Mg Tab, 40 MG PO DAILY Prescribed by: JONATHON HARP on 05/26/191812 Review of Systems Review of Systems Constitutional: No fever EENTM: no symptoms reported Respiratory: no symptoms reported Cardiovascular: other (palpitations) Gastrointestinal: no symptoms reported Genitourinary: no symptoms reported Musculoskeletal: see HPI Skin: no symptoms reported Psychiatric/Neurological: No Symptoms Reported Hematologic/Lymphatic: No Symptoms Reported Immunological/Allergic: no symptoms reported Past Kzkvphx-Rhnthi-Rfxaiw Hx Patient Social History Tobacco Use?: No Use of E-Cig and/or Vaping dev: No Substance use?: No Alcohol Use?: No Pt feels they are or have been: No Immunizations Up To Date First/Initial COVID19 Vaccinat: August COVID19 Vaccination Gurwinder: August COVID19 Vaccination Date: August Seasonal Allergies Seasonal Allergies: Yes Past Medical History Surgery/Hospitalization HX: HTN; Seasonal Allergies; BPH Surgeries: Yes (Colonoscopy) Respiratory: No Cardiac: Yes Hypertension Neurological: No Genitourinary: Yes Benign Prostatic Hyperpl Gastrointestinal: No Musculoskeletal: No Endocrine: No HEENT: Yes (Chronic Sinusitis) Cancer: No Psychosocial: No Integumentary: No Blood Disorders: No Physical Exam Vital Signs Vital Signs - First Documented 07/14/22 13:22 Temp 36.4 Pulse 66 Resp 16 B/P (MAP) 151/77 (101) Pulse Ox 96 O2 Delivery Room Air Capillary Refill : Less Than 3 Seconds Height, Weight, BMI Height: '" Weight: lbs. oz. kg; 32.00 BMI Method: General Appearance: No Apparent Distress, WD/WN Eyes: Bilateral Eye Normal Inspection HEENT: PERRL/EOMI, Normal ENT Inspection, Pharynx Normal Neck: Full Range of Motion, Normal Inspection, Non Tender, Supple Respiratory: Chest Non Tender, Lungs Clear, Normal Breath Sounds, No Accessory Muscle Use, No Respiratory Distress Cardiovascular: No Edema, Normal Peripheral Pulses, Bradycardia Gastrointestinal: Normal Bowel Sounds, Non Tender, Soft Back: Normal Inspection, No CVA Tenderness Extremity: Normal Capillary Refill, Normal Inspection, Normal Range of Motion, Non Tender, No Calf Tenderness, No Pedal Edema Neurologic/Psychiatric: Alert, Oriented x3, No Motor/Sensory Deficits, Normal Mood/Affect, drug safety physician II-XII Norm as Tested, Other (normal visual [place] and visual acuity, normal gait) Skin: Normal Color, Warm/Dry Lymphatic: No Adenopathy Progress/Results/Core Measures Suspected Sepsis SIRS Temperature: Pulse: 66 Respiratory Rate: 16 Laboratory Tests 07/14/22 13:28: White Blood Count 7.8 Blood Pressure 151 /77 Mean: 101 Laboratory Tests 07/14/22 13:28: Creatinine 1.35H, INR Comment 1.0, Platelet Count 228, Total Bilirubin 0.3 Results/Orders Lab Results Laboratory Tests Test 07/14/22 13:28 Range/Units White Blood Count 7.8 4.3-11.0 10^3/uL Red Blood Count 5.00 4.30-5.52 10^6/uL Hemoglobin 15.8 13.3-17.7 g/dL Hematocrit 44 40-54 % Mean Corpuscular Volume 89 80-99 fL Mean Corpuscular Hemoglobin 32 25-34 pg Mean Corpuscular Hemoglobin Concent 36 32-36 g/dL Red Cell Distribution Width 11.9 10.0-14.5 % Platelet Count 228 130-400 10^3/uL Mean Platelet Volume 9.9 9.0-12.2 fL Immature Granulocyte % (Auto) 0 % Neutrophils (%) (Auto) 62 42-75 % Lymphocytes (%) (Auto) 26 12-44 % Monocytes (%) (Auto) 7 0-12 % Eosinophils (%) (Auto) 3 0-10 % Basophils (%) (Auto) 1 0-10 % Neutrophils # (Auto) 4.8 1.8-7.8 10^3/uL Lymphocytes # (Auto) 2.0 1.0-4.0 10^3/uL Monocytes # (Auto) 0.6 0.0-1.0 10^3/uL Eosinophils # (Auto) 0.2 0.0-0.3 10^3/uL Basophils # (Auto) 0.1 0.0-0.1 10^3/uL Immature Granulocyte # (Auto) 0.0 0.0-0.1 10^3/uL Prothrombin Time 13.3 12.2-14.7 SEC INR Comment 1.0 0.8-1.4 Activated Partial Thromboplast Time 46 H 24-35 SEC Sodium Level 142 135-145 MMOL/L Potassium Level 4.4 3.6-5.0 MMOL/L Chloride Level 103 98-107 MMOL/L Carbon Dioxide Level 25 21-32 MMOL/L Anion Gap 14 5-14 MMOL/L Blood Urea Nitrogen 27 H 7-18 MG/DL Creatinine 1.35 H 0.60-1.30 MG/DL Estimat Glomerular Filtration Rate 56 BUN/Creatinine Ratio 20 Glucose Level 75 70-105 MG/DL Calcium Level 9.7 8.5-10.1 MG/DL Corrected Calcium 8.5-10.1 MG/DL Magnesium Level 2.3 1.6-2.4 MG/DL Total Bilirubin 0.3 0.1-1.0 MG/DL Aspartate Amino Transf (AST/SGOT) 19 5-34 U/L Alanine Aminotransferase (ALT/SGPT) 25 0-55 U/L Alkaline Phosphatase 71 40-136 U/L Troponin I < 0.30 <0.30 NG/ML Pro-B-Type Natriuretic Peptide 14.0 <125.0 PG/ML Total Protein 8.4 H 6.4-8.2 GM/DL Albumin 5.1 H 3.2-4.5 GM/DL Lipase 26 8-78 U/L Influenza Type A (RT-PCR) Not Detected Not Detecte Influenza Type B (RT-PCR) Not Detected Not Detecte SARS-CoV-2 RNA (RT-PCR) Not Detected Not Detecte My Orders Orders - MILAD ABRAHAM MD Cbc With Automated Diff (07/14/22 13:37) Magnesium (07/14/22 13:37) Chest 1 View Ap/Pa Only (07/14/22 13:37) Ekg Tracing (07/14/22 13:37) Comprehensive Metabolic Panel (07/14/22 13:37) Protime With Inr (07/14/22 13:37) Partial Thromboplastin Time (07/14/22 13:37) O2 (07/14/22 13:37) Monitor-Rhythm Ecg Trace Only (07/14/22 13:37) Aspirin Chewable Tablet (Baby Aspirin Ch (07/14/22 13:45) Ed Iv/Invasive Line Start (07/14/22 13:37) Lipase (07/14/22 13:37) Troponin I Fs (07/14/22 13:37) Probnp Fs (07/14/22 13:37) Influenza A And B By Pcr (07/14/22 13:37) Covid 19 Inhouse Test (07/14/22 13:37) Medications Given in ED Current Medications Medications Dose Ordered Sig/Lupe Route Start Time Stop Time Status Last Admin Dose Admin Aspirin 324 mg ONCE ONCE PO 07/14/22 13:45 07/14/22 13:46 DC 07/14/22 13:50 324 MG Vital Signs/I&O 07/14/22 13:22 Temp 36.4 Pulse 66 Resp 16 B/P (MAP) 151/77 (101) Pulse Ox 96 O2 Delivery Room Air Capillary Refill : Less Than 3 Seconds Blood Pressure Mean: 101 Progress Note : Progress Note 72-year-old male with above history coming in because he was "feeling off". Took his blood pressure and it was 150s over 80s and it said his heart rate was 104. Given his heart rate is typically lower, he presented to the ER. He never actually checked his pulse or confirm this. Denied any significant symptoms with it like chest pain, shortness of breath, or any concerns. EKG ordered and interpreted by me showing normal sinus rhythm, left axis deviation, no STEMI, Q waves in the septal leads. It appears similar to prior EKGs when I reviewed his chart. Chest x-ray with no acute abnormalities. An IV was placed and basic labs were obtained including cardiac biomarkers. These were reassuring. His creatinine is also near his baseline and he is not anemic. His vitals have been within his normal limits since being in the ER and he is essentially asymptomatic. I am unclear if his heart rate was ever elevated around 100 since its not been elevated at all on the monitor in the ER here. Its possible this was a malfunction of his blood pressure machine. I will recommend that he personally takes his pulse in the future if the machine says it is elevated or he can try getting some type of wrist watch that monitors his heart rate more frequently. I believe he is otherwise stable for discharge with outpatient follow-up. He was sent home with strict return precautions ECG Initial ECG Impression Date: Jul 14, 2022 Initial ECG Impression Time: 13:28 Initial ECG Rate: 57 Initial ECG Rhythm: S.Randy Comment Narrow QRS, left axis deviation, no significant ST changes or T wave abnormalities, Q waves in the septal lead. Appears similar to prior EKGs Diagnostic Imaging Diagonstic Imaging: Xray (chest) Comments [facility], [place] NAME: CHRISTIANA MEDEL [facility] REC#: [id number] PT STATUS: REG ER : 1950 PHYSICIAN: MILAD ABRAHAM MD ADMIT DATE: 07/14/22/ER FS Draft Date of Exam:07/14/22 CHEST 1 VIEW AP/PA ONLY INDICATION: Syncope. COMPARISON: 12/04/2021. FINDINGS: The heart size, mediastinal configuration, and pulmonary vascularity are within normal limits. There is no pleural effusion, pneumothorax, or pneumonia. The osseous structures are unremarkable. IMPRESSION: No acute cardiopulmonary abnormality. Dictated on workstation # [id number] Dict: 07/14/22 1405 Trans: 07/14/22 1414 [id number] Interpreted by: GABRIELE BOCANEGRA MD Electronically signed by: Departure Impression Primary Impression: Near syncope Disposition: 01 HOME, SELF-CARE Condition: Stable Departure-Patient Inst. Decision time for Depature: 14:53 Referrals: CHRISTIANA ARCHIBALD MD (PCP) Primary Care Physician Patient Instructions: Near Fainting (DC) Add. Discharge Instructions: It is unclear if your heart rate was actually elevated or if this is just a problem with the machine you are using. I recommend getting something that can monitor your heart rate better in the future and more long-term instead of a one-time reading. If you feel like your heart is racing, severe chest pain, severe shortness of breath and I would want to come back to the ER. Otherwise please follow back up with your regular doctor. Work/School Note: Work Release Form Date Seen in the Emergency Department: Jul 14, 2022 Return to Work: Jul 15, 2022 Restrictions: No Restrictions MILAD ABRAHAM MD Jul 14, 2022 13:48
[2022-07-14 13:49] LABS: PROTHROMBIN TIME PATIENT 13.3 SEC (12.2-14.7)
[2022-07-14 14:00] LABS: CARBON DIOXIDE 25 MMOL/L (21-32); CHLORIDE 103 MMOL/L (98-107); POTASSIUM 4.4 MMOL/L (3.6-5.0); SODIUM 142 MMOL/L (135-145)
[2022-07-14 14:01] LABS: ALANINE AMINOTRANSFERASE 25 U/L (0-55); ALBUMIN 5.1 GM/DL (3.2-4.5); ALKALINE PHOSPHATASE 71 U/L (40-136); BILIRUBIN,TOTAL 0.3 MG/DL (0.1-1.0); BUN/CREATININE RATIO 20; CALCIUM 9.7 MG/DL (8.5-10.1); CREATININE SERUM 1.35 MG/DL (0.60-1.30); GFR ESTIMATED 56; GLUCOSE 75 MG/DL (70-105); LIPASE 26 U/L (8-78); MAGNESIUM 2.3 MG/DL (1.6-2.4); TOTAL PROTEIN 8.4 GM/DL (6.4-8.2)
--- NOTE | 2022-07-14 14:15 | Diagnostic Imaging Report ---
INDICATION: Syncope. COMPARISON: 12/04/2021. FINDINGS: The heart size, mediastinal configuration, and pulmonary vascularity are within normal limits. There is no pleural effusion, pneumothorax, or pneumonia. The osseous structures are unremarkable. IMPRESSION: No acute cardiopulmonary abnormality. Dictated by: Dictated on workstation # [id number]
[2022-07-14 14:56] VITALS: BP 135/66
== END 2022-07-14 14:58 | disposition home or self-care (01) ==
LOC: EDUNIT# 13:19 → ER FS 13:20
DX: R55 Syncope and collapse (principal); I10 Essential (primary) hypertension; Z20.822 Contact with and (suspected) exposure to COVID-19
CPT/HCPCS: 36415; 71045; 80053; 83690; 83735; 83880; 84484; 85025; 85610; 85730; 87636; 93005; 93041